=== PATIENT | male | born 1955 | race Caucasian/White ===

== ENCOUNTER → 2022-08-30 | Outpatient (CLI) | payer MEDICARE ==
--- NOTE | 2022-08-31 09:59 | MR ---
EXAMINATION TYPE: MR Prostate wo/w con DATE OF EXAM: 08/30/2022 COMPARISON: None. INDICATION: Elevated PSA. PSA: 12.19 ng/ml on August 16, 2022 increased from 10.16 on August 24, 2021 Recent Biopsy and Date: None Pathology Report (If Applicable): none. TECHNIQUE: Examination was performed using a 3T MRI without an endorectal coil. Multiparametric imaging was perf ormed with T2 mutliplanar sequences, axial diffusion weighted imaging and dynamic contrast enhanced i maging, utilizing 8 mL intravenous Gadavist gadolinium contrast. FINDINGS: PROSTATE VOLUME: 10.1 cm SI x 5.8 cm AP x 7.0 cm LR Vol= 214.7 cc PSA DENSITY: 0.06 ng/ml/cc Markedly enlarged prostate gland is present bulging into the inferior portion of the bladder. Periphe ral zone appears within normal limits. Central zone shows heterogeneity without suspicious area of di minished T2 signal or restricted diffusion. Prostate capsule is maintained. Seminal vesicles appear w ithin normal limits. There is moderate to severe distention of bladder which is only partially imaged . No suspicious wall thickening or trabeculation noted. No concerning pelvic fluid collection. Adjace nt osseous structures are intact. IMPRESSION: Markedly enlarged prostate gland consistent with BPH. A focus of clinically significant cancer is not identified. Highest Assessment Category: 1 MRI Stage: T0 N0 M0 based on review of pelvic images. False negative rates for MRI range from 5-20% depending on risk profile. Assessment Categories: 1 ? Very low (clinically significant cancer is highly unlikely to be present) 2 ? Low (clinically significant cancer is unlikely to be present) 3 ? Intermediate (the presence of clinically significant cancer is equivocal) 4 ? High (clinically significant cancer is likely to be present) 5 ? Very high (clinically significant cancer is highly likely to be present)
== END | disposition home or self-care (01) ==
LOC: RADMRIMAIN 07:49
PROVIDERS: ATTEND Urology
DX: N40.0 Benign prostatic hyperplasia without lower urinary tract symptoms (principal); R97.20 Elevated prostate specific antigen [PSA]
CPT/HCPCS: 72197; A9585